=== PATIENT | female | born 1995 | race Caucasian/White ===

== ENCOUNTER 2022-04-29 17:55 | Emergency (ER) | payer OTHER, SELFPAY ==
--- NOTE | 2022-04-29 17:58 | ED.EAR ---
HPI - Ear Problem General Chief complaint: Ear Stated complaint: pain in left ear Time Seen by Provider: 04/29/22 18:10 Source: patient and RN notes reviewed Mode of arrival: ambulatory Limitations: no limitations History of Present Illness HPI Narrative: 27-year-old female presents concern for left ear pain for past 3-4 days. She reports that it hurts going down her throat. She reports sore throat scratchy throat. She reports history of ear infections having her tympanic membranes rupture. She denies nasal congestion, rhinorrhea fever, body aches, chills, sweats, changes in hearing or drainage from the ear. MD Complaint: ear pain Related Data Allergies Allergy/AdvReac Type Severity Reaction Status Date / Time No Known Allergies Allergy Verified 04/29/22 18:17 Review of Systems Review of Systems: CONSTITUTIONAL: Denies malaise, chills, sweats, or fever. EYES: Denies visual changes, redness, or discharge. ENT: Denies rhinorrhea, congestion, sinus pain, and sore throat. Reports left ear pain CARDIOVASCULAR: Denies chest pain, palpitations, or edema. RESPIRATORY: Denies cough. Denies dyspnea. GASTROINTESTINAL: Denies abdominal pain, nausea, vomiting, diarrhea SKIN: Denies rash or itching. MUSCULOSKELETAL: Denies myalgia. NEUROLOGIC: Denies headache. All systems reviewed & are unremarkable except as noted in HPI and below PMFSH Comments At time of signature, agree with nursing past medical, surgical, social and family history. There is no relevant family history pertinent to the presenting complaint Exam Narrative: GENERAL: Well-appearing, well-nourished, and in no acute distress. HEAD: Normocephalic EYES: PERRLA, conjunctivae clear ENT: Nares clear, turbinates edematous, clear discharge. Mucous membranes moist. Right TM pearly [place] with dull light reflex left TM erythematous and bulging; no tragal tenderness. Oropharynx not erythematous without lesions. Tonsils not enlarged and without exudate, no drooling, no hoarseness, no trismus, uvula midline. NECK: Supple. No lymphadenopathy CHEST: Clear to auscultation, breath sounds equal. No wheezing, rhonchi, rales, or stridor. No respiratory distress, speaks in full sentences. HEART: Regular rate and rhythm. No murmur heard. SKIN: Warm, dry, no rash. NEURO: Alert and oriented x3. PSYCH: Normal mood and affect Course Course Emergency Course: Patient is aware of diagnosis, understands and agrees to treatment plan. Anticipatory guidance given. Patient agrees to follow-up as directed and is aware of reasons to seek care at the emergency department. Portions of this record may have been created with voice recognition software Level of Care: Express Care Visit Vital Signs Vital signs: Vital Signs Temperature 98.5 F 04/29/22 18:06 Pulse Rate 70 04/29/22 18:06 Respiratory Rate 20 04/29/22 18:06 Blood Pressure 134/78 04/29/22 18:06 Pulse Oximetry 100 04/29/22 18:06 Temperature 98.5 F 04/29/22 18:06 Pulse Rate 70 04/29/22 18:06 Respiratory Rate 20 04/29/22 18:06 Blood Pressure 134/78 04/29/22 18:06 Pulse Oximetry 100 04/29/22 18:06 Reviewed. Medical Decision Making MDM Narrative Medical decision making narrative: Differential diagnosis considered: Barron virus, strep pharyngitis, allergic rhinitis, upper respiratory tract infection, sinusitis, rhinosinusitis, nasopharyngitis. viral pharyngitis, otitis media, otitis externa, otitis effusion, cerumen impaction, foreign body. Exam findings show no acute concerns or changes; patient is non-toxic appearing and is in no distress. Patient is appropriate for outpatient treatment and follow-up. Vital Signs Vital Signs: Vital Signs Temperature 98.5 F 04/29/22 18:06 Pulse Rate 70 04/29/22 18:06 Respiratory Rate 20 04/29/22 18:06 Blood Pressure 134/78 04/29/22 18:06 Pulse Oximetry 100 04/29/22 18:06 Temperature 98.5 F 04/29/22 18:06 Pulse Rate 70 04/29/22 18:06 R
[2022-04-29 18:06] VITALS: BP 134/78; PULSE 70; RESP 20; TEMP 36.9; O2SAT 100
== END 2022-04-29 18:23 | disposition home or self-care (01) ==
PROVIDERS: Emergency Provider Nurse Practitioner
DX: H66.90 Otitis media, unspecified, unspecified ear (principal)
CPT/HCPCS: 99213; G0463

== ENCOUNTER 2022-05-18 18:42 | Emergency (ER) | payer OTHER, SELFPAY ==
--- NOTE | 2022-05-18 18:46 | ED.EAR ---
HPI - Ear Problem General Chief complaint: Ear Stated complaint: lt ear infection Time Seen by Provider: 05/18/22 18:44 Source: patient Mode of arrival: ambulatory Limitations: no limitations History of Present Illness HPI Narrative: Savita is a 27-year-old female patient presenting to clinic today with complaints possible left ear infection. She reports she was seen approximately 2 and half weeks ago was diagnosed with left otitis media. She states she has finished up all of her antibiotics. Reports over the last few days she has had increasing pain and discharge to the left ear Related Data Allergies Allergy/AdvReac Type Severity Reaction Status Date / Time No Known Allergies Allergy Verified 05/18/22 18:49 Review of Systems Review of Systems: Pertinent positives per HPI. Patient denies any fever, chills, rash, headache, visual changes, dizziness, cough, runny nose, sore throat, shortness of breath, chest pain, palpitations, nausea, vomiting, diarrhea, constipation, abdominal pain, or any urinary issues. PMFSH Comments At the time of my signature, I reviewed and agree with the nursing past medical, surgical, social, and family history. There is no relevant family history pertinent to the patient complaint. Exam Narrative: General: Well-developed, well nourished, in no apparent distress Head: Normocephalic, atraumatic Eyes: Pupils equally round and reactive to light bilaterally, EOM intact, sclera and conjunctive clear, no discharge, lids normal Ears: Right TM intact and clear, left TM intact and dull, right ear canals clear, left ear canal swollen, and red, no obvious drainage, tender to palpation of tragus and pulling of the pinna, grossly hearing normal. Nose: Nares patent, no discharge, no inflammation, no sinus tenderness. Mouth: Oropharynx without lesions or masses, good dentition, MMM. Neck: Supple, trachea midline, no enlargement of anterior or posterior cervical nodes, no thyroid masses or goiter palpable. Cardio: Regular rate and rhythm, s1 and s2 normal, no murmur appreciated. Resp: Clear to auscultation bilaterally anteriorly and posteriorly, no rhonchi, rales, wheezing or rubs Course Course Emergency Course: Portions of this record may have been created with voice recognition software. Level of Care: Express Care Visit Vital Signs Vital signs: Vital signs reviewed Medical Decision Making MDM Narrative Medical decision making narrative: At the time of the patient is resting comfortably on exam table. I suspect patient has left otitis externa. Will send a prescription for ofloxacin ear drops supportive measures were discussed with the patient she voiced understanding discharge instructions and agrees to treatment plan. Differential Diagnosis Differential Diagnosis: Otitis media, otitis externa, eustachian tube dysfunction, serous otitis, otalgia Discharge Plan Discharge Clinical Impression: Otitis externa Qualifiers: Otitis externa type: diffuse Chronicity: acute Laterality: left Qualified Code(s): H60.312 - Diffuse otitis externa, left ear Patient Disposition: Home, Self-Care Condition: Stable Instructions: Antibiotic Form, Swimmer's Ear (ED) Additional Instructions: Take any prescribed medications only as directed, Tylenol/motrin as needed for pain May use heating pad to alleviate pain Avoid bottle propping if ear infection in infant. If you get recurrent ear infections it may be warranted to follow up with ENT. Follow up with your PCP in 3-5 days if symptoms persist. Prescriptions: New ofloxacin 0.3 % drops 5 drp otic (ear) BID 7 Days Qty: 5 0RF ofloxacin 0.3 % drops 5 drp otic (ear) BID 7 Days Qty: 5 0RF Follow-up/Referrals: UNKNOWN,DOCTOR [Primary Care Provider] - Time of Disposition: 18:49 Quality NIHSS Nursing Documentation ED NIHSS nursing documentation: reviewed/agree
[2022-05-18 18:48] VITALS: BP 129/89; PULSE 92; RESP 16; TEMP 37.3; O2SAT 100
== END 2022-05-18 18:57 | disposition home or self-care (01) ==
PROVIDERS: Emergency Provider Nurse Practitioner Family
DX: H60.312 Diffuse otitis externa, left ear (principal)
CPT/HCPCS: 99213; G0463

== ENCOUNTER 2023-02-12 10:41 | Emergency (ER) | payer OTHER, SELFPAY ==
[2023-02-12 11:14] VITALS: BP 129/90; PULSE 73; RESP 16; TEMP 36.6; O2SAT 100
--- NOTE | 2023-02-12 11:27 | ED.GENADULT ---
HPI - General Adult General Chief complaint: Skin/Abscess/Foreign Body Stated complaint: POSS FB IN THROAT Time Seen by Provider: 02/12/23 11:20 Source: patient, RN notes reviewed and old records reviewed Mode of arrival: ambulatory Limitations: no limitations History of Present Illness HPI narrative: 27 year old female who presents to express care with complaints of feeling like she has something in the right side of her throat when she swallows or yawns noted on Monday evening. Patient reports that she was eating sunflower seeds in the shells and wonders if she has one of the shells caught back in her throat.Patient reports that she can eat and drink without any difficulty states no feelings of dyspnea or any difficulty swallowing just feels irritation in right side of her throat. MD complaint: feels like foreign body in throat, throat sore Onset (ago): day(s) (2) Location: mouth (right side of throat) Severity scale (1-10): 3 Quality: sharp Pain Consistency: intermittent Treatments prior to arrival: none Related Data Allergies Allergy/AdvReac Type Severity Reaction Status Date / Time No Known Allergies Allergy Verified 02/12/23 15:46 Review of Systems Review of Systems: CONSTITUTIONAL: Denies fever, chills, or sweats. EYES: Denies visual changes, redness, or discharge. ENT: Denies rhinorrhea, congestion,positive for right sided sore throat, no otalgia. CARDIOVASCULAR: Denies chest pain, palpitations, or edema. RESPIRATORY: Denies cough or dyspnea. GASTROINTESTINAL: Denies abdominal pain, nausea, vomiting, or diarrhea. GENITOURINARY: Denies dysuria or hematuria. SKIN: Denies rash or itching. MUSCULOSKELETAL: Denies back pain, joint pain, or myalgia. NEUROLOGIC: Denies headache, numbness, or weakness. PSYCHIATRIC: Denies anxiety or depression. All systems reviewed & are unremarkable except as noted in HPI and below PMFSH Past Medical History Medical History (Updated 02/13/23 @ 12:28 by Denisa Kee NP) Injury of right ankle ligament Surgical History Surgical History (Updated 02/13/23 @ 12:26 by Denisa Kee NP) S/P wisdom tooth extraction Social History Social History (Updated 02/13/23 @ 12:26 by Denisa Kee NP) Smoking status: Never smoker Alcohol intake: current Alcohol use details: social Substance use type: does not use Living arrangements: alone Gender identity (if verbalized by the patient): Female Comments At time of signature, agree with nursing past medical, surgical, social and family history. There is no relevant family history pertinent to the presenting complaint Exam Narrative: GENERAL: Well-appearing, well-nourished, and in no acute distress. HEAD: Normocephalic, atraumatic. EYES: PERRLA and EOMI. ENT: Nares clear, no rhinorrhea or epistaxis. Mucous membranes moist.TM's normal with good light reflex.redness to back of throat no lesions noted or exudates tonsil not enlarged, denies inability to swallow feels some sharp pain in back of right side of throat intermittently no foreign body observed NECK: Supple.no lymphadenopathy CHEST: Clear to auscultation. No respiratory distress.SAO2 100% on room air HEART: Regular rate and rhythm. No murmur heard. Normal peripheral pulses. ABDOMEN: Soft, nontender, nondistended, normal active bowel sounds. EXTREMITIES: Normal range of motion. No edema. SKIN: Warm, dry, no rash. NEURO: No focal deficits. Alert and oriented x3. Course Course Emergency Course: Patient is aware of diagnosis, understands and agrees to treatment plan.? Anticipatory guidance given.? Patient agrees to follow-up as directed and is aware of reasons to seek care at the emergency department. Portions of this record may have been created with voice recognition software Level of Care: Express Care Visit Vital Signs Vital signs: Vital Signs Temperature 36.6 C 02/12/23 11:14 Pulse Rate 73 02/12/23 11:14 Respiratory Rate 16
== END 2023-02-12 12:13 | disposition home or self-care (01) ==
PROVIDERS: Emergency Provider Registered Nurse; PCP Nurse Practitioner
DX: R07.0 Pain in throat (principal)
CPT/HCPCS: 87081; 87880; 99213; G0463